=== PATIENT | male | born 1995 | race Caucasian/White ===

== ENCOUNTER 2018-02-24 18:38 | Inpatient (IN) | payer OTHER ==
[~2018-02-24] VITALS: Ht 180.3 cm; Wt 71.8 kg
[2018-02-24 19:21] LABS: BASO % 0.4 % (0.0-2.0); EOS # 0.3 (0.0-0.7); EOS % 2.6 % (0-4.0); GRAN # 5.9 (1.4-6.5); GRAN % 61.1 % (42.2-75.2); HEMOGLOBIN 16.3 g/dl (12.5-16.1); LYMPH # 2.9 (1.2-3.4); LYMPH % 29.7 % (20.0-51.0); MEAN CELL VOLUME 85 fl (80.0-95.0); MEAN CORPUSCULAR HEMOGLOBIN 30 pg (26.0-32.0); MEAN CORPUSCULAR HGB CONC 35 g/dl (33.0-37.0); MEAN PLATELET VOLUME 9.6 fl (7.4-10.4); MONO # 0.6 (0.1-0.6); MONO % 5.9 % (1.7-9.3); PLATELET COUNT 196 K/mm3 (130-400); RED BLOOD COUNT 5.52 M/mm3 (4.20-5.60); REDCELL DISTRIBUTION WIDTH-CV 11.5 % (11.5-14.5)
[2018-02-24 19:29] LABS: CALCIUM 9.6 mg/dL (8.4-10.2); CREATININE, serum 0.78 mg/dL (0.66-1.25); POTASSIUM 4.1 mmol/L (3.4-5.0)
[2018-02-25] VITALS (7 sets, daily range): BP systolic 118–153; BP diastolic 51–83; PULSE 64–94; TEMP 97.7–98.6
[2018-02-25 00:01] LABS: COLLECTION METHOD CATHETER
[2018-02-25 00:07] LABS: PH 7 (5-8); SQUAMOUS EPITHELIAL 0-2 /hpf; URINE APPEARANCE Clear; URINE BACTERIA None Seen /hpf; URINE BILIRUBIN Negative (NEGATIVE); URINE BLOOD 1+ (NEGATIVE); URINE COLOR Straw; URINE GLUCOSE Negative (NEGATIVE); URINE KETONE Negative (NEGATIVE); URINE LEUKOCYTE ESTERASE Negative (NEGATIVE); URINE NITRATE Negative (NEGATIVE); URINE PROTEIN(semi-quant) Negative (NEGATIVE); URINE RBC 0-2 /hpf; URINE UROBILINOGEN Negative (NEGATIVE)
[2018-02-25 00:41] LABS: ANION GAP 10 mmol/L (7-16); BLOOD UREA NITROGEN 15 mg/dL (9-20); CALCIUM 8.7 mg/dL (8.4-10.2); CARBON DIOXIDE 27 mmol/L (22-30); CHLORIDE 107 mmol/L (98-107); CREATININE, serum 0.69 mg/dL (0.66-1.25); GLUCOSE 102 mg/dL (74-106); MAGNESIUM 1.7 mg/dL (1.6-2.3); PHOSPHOROUS 3.5 mg/dL (2.5-4.5); POTASSIUM 3.9 mmol/L (3.4-5.0); SODIUM 144 mmol/L (137-145)
[2018-02-25 00:56] LABS: TROPONIN-I < 0.012 ng/mL (0.000-0.034)
[2018-02-25 03:45] LABS: BASO % 0.4 % (0.0-2.0); EOS # 0.2 (0.0-0.7); EOS % 2.3 % (0-4.0); GRAN # 4.4 (1.4-6.5); HEMATOCRIT 39.4 % (36.0-47.0); LYMPH # 3.3 (1.2-3.4); LYMPH % 39.3 % (20.0-51.0); MEAN CELL VOLUME 86 fl (80.0-95.0); MEAN CORPUSCULAR HEMOGLOBIN 30 pg (26.0-32.0); MEAN CORPUSCULAR HGB CONC 35 g/dl (33.0-37.0); MEAN PLATELET VOLUME 9.4 fl (7.4-10.4); MONO # 0.5 (0.1-0.6); MONO % 5.9 % (1.7-9.3); PLATELET COUNT 153 K/mm3 (130-400); RED BLOOD COUNT 4.59 M/mm3 (4.20-5.60); REDCELL DISTRIBUTION WIDTH-CV 11.6 % (11.5-14.5)
[2018-02-25 03:50] LABS: HEMOGLOBIN 13.7 g/dl (12.5-16.1)
[2018-02-25 03:56] LABS: BILIRUBIN,TOTAL 0.3 mg/dL (0.0-1.0); CALCIUM 8.4 mg/dL (8.4-10.2); CREATININE, serum 0.67 mg/dL (0.66-1.25); POTASSIUM 3.9 mmol/L (3.4-5.0); TOTAL PROTEIN 5.5 gm/dL (6.4-8.2)
[2018-02-25 08:52] LABS: CALCIUM 8.7 mg/dL (8.4-10.2); CREATININE, serum 0.68 mg/dL (0.66-1.25); POTASSIUM 4.2 mmol/L (3.4-5.0)
[2018-02-25 17:24] LABS: CALCIUM 8.7 mg/dL (8.4-10.2); CREATININE, serum 0.68 mg/dL (0.66-1.25); POTASSIUM 3.9 mmol/L (3.4-5.0)
[2018-02-26 04:13] VITALS: BP 129/61; PULSE 75; TEMP 97.9
[2018-02-26 06:59] LABS: CALCIUM 8.8 mg/dL (8.4-10.2); CREATININE, serum 0.66 mg/dL (0.66-1.25); PHOSPHOROUS 3.4 mg/dL (2.5-4.5); POTASSIUM 3.7 mmol/L (3.4-5.0); URIC ACID 3.4 mg/dL (3.5-8.5)
[2018-02-26 07:30] VITALS: BP 118/49; PULSE 66; TEMP 98
[2018-02-26 11:37] VITALS: BP 139/58; PULSE 55; TEMP 98.5
[2018-02-26 15:53] VITALS: BP 121/61; PULSE 71; TEMP 97.9
[2018-02-26 20:11] VITALS: BP 130/62; PULSE 80; TEMP 97.6
[2018-02-27] VITALS (7 sets, daily range): BP systolic 112–135; BP diastolic 43–75; PULSE 64–78; TEMP 97–98.2
[2018-02-27 06:36] LABS: BASO % 0.3 % (0.0-2.0); EOS # 0.3 (0.0-0.7); EOS % 3.9 % (0-4.0); GRAN # 3.1 (1.4-6.5); GRAN % 48.3 % (42.2-75.2); HEMATOCRIT 39.3 % (36.0-47.0); HEMOGLOBIN 13.2 g/dl (12.5-16.1); LYMPH # 2.6 (1.2-3.4); LYMPH % 40.9 % (20.0-51.0); MEAN CELL VOLUME 89 fl (80.0-95.0); MEAN CORPUSCULAR HEMOGLOBIN 30 pg (26.0-32.0); MEAN CORPUSCULAR HGB CONC 34 g/dl (33.0-37.0); MEAN PLATELET VOLUME 9.7 fl (7.4-10.4); MONO # 0.4 (0.1-0.6); MONO % 6.4 % (1.7-9.3); PLATELET COUNT 143 K/mm3 (130-400); RED BLOOD COUNT 4.42 M/mm3 (4.20-5.60); REDCELL DISTRIBUTION WIDTH-CV 11.7 % (11.5-14.5)
[2018-02-27 07:02] LABS: CREATININE, serum 0.64 mg/dL (0.66-1.25); MAGNESIUM 1.8 mg/dL (1.6-2.3); POTASSIUM 3.8 mmol/L (3.4-5.0)
[2018-02-28 03:24] VITALS: BP 131/62; PULSE 65; TEMP 98.1
[2018-02-28 07:23] VITALS: BP 110/53; PULSE 76; TEMP 97.6
[2018-02-28 07:57] LABS: CALCIUM 9.5 mg/dL (8.4-10.2); CREATININE, serum 0.83 mg/dL (0.66-1.25); POTASSIUM 4.2 mmol/L (3.4-5.0)
[2018-02-28 11:37] VITALS: BP 124/61; PULSE 75; TEMP 97.8
[2018-02-28 11:59] VITALS: BP 128/87; PULSE 76; TEMP 97.8
== END 2018-02-28 12:40 | disposition home or self-care (01) | DRG 558 ==
LOC: COL.ER 18:38 → MEDICAL 20:30
PROVIDERS: Emergency Medicine; Internal Medicine; Nurse Practitioner Family; Physician Assistant
DX: M62.82 Rhabdomyolysis (principal)
CPT/HCPCS: 99222-AI; 99231-AI; 99232-AI; 99239; J1644; J1650; J7030